=== PATIENT | male | born 1945 | race Caucasian/White ===

== ENCOUNTER → 2025-02-24 15:58 | Outpatient (REF) | payer MEDICARE, SELFPAY | LOC: PAVMRI 15:58 | PROVIDERS: ATTENDING PHYSICIAN Physician Assistant Surgical; FAMILY PHYSICIAN Internal Medicine | DX: M54.12 Radiculopathy, cervical region (principal) | CPT/HCPCS: 72141 ==

== ENCOUNTER → 2025-03-12 14:39 | Outpatient (REF) | payer MEDICARE, SELFPAY | LOC: HWRCS 14:39 | PROVIDERS: ATTENDING PHYSICIAN Nurse Practitioner; FAMILY PHYSICIAN Internal Medicine | DX: I48.0 Paroxysmal atrial fibrillation (principal) | CPT/HCPCS: 93306 ==